=== PATIENT | female | born 1975 | race African-American/Black ===

== ENCOUNTER 2024-05-06 20:15 | Inpatient (IN) | payer OTHER ==
[~2024-05-06] VITALS: Ht 167.6 cm; Wt 62.6 kg
[2024-05-06 21:36] LABS: CALCIUM, SERUM 8.2 mg/dL (8.5-10.1); CARBON DIOXIDE 32 mmol/L (21-32); CHLORIDE 106 mmol/L (98-107); CREATININE 0.8 mg/dL (0.6-1.3); GLUCOSE 133 mg/dL (74-106); POTASSIUM 3.6 mmol/L (3.5-5.1); SODIUM SERUM 144 mmol/L (136-145); UREA NITROGEN, BLOOD 8 mg/dL (7-18)
[2024-05-06 21:43] LABS: BASOPHILS % (AUTO) 0.3 % (0.0-2.0); EOSINOPHILS % (AUTO) 0.1 % (0.0-6.0); LYMPHOCYTES # (AUTO) 1.2 K/uL (0.8-4.8); MEAN CORPUSCULAR HEMOGLOBIN 32 PG (26.0-33.0); MEAN CORPUSCULAR HGB CONC 34 g/dl (31.0-36.0); MEAN CORPUSCULAR VOLUME 95 fL (82-100); MONOCYTES # (AUTO) 0.5 K/uL (0.1-1.30); NEUTROPHILS # (AUTO) 5.8 K/uL (1.8-8.9); NEUTROPHILS % (AUTO) 76.6 % (43.0-81.0); PLATELET COUNT (AUTO) 287 K/uL (150-450); RED BLOOD CELL COUNT(AUTO) 1.88 MIL/uL (4.0-5.2); WHITE BLOOD COUNT (AUTO) 7.6 K/uL (4.3-11.0)
[2024-05-06 21:45] LABS: HEMATOCRIT 18 % (33-45)
[2024-05-06 21:49] LABS: ALANINE AMINOTRANSFERASE 12 U/L (12-78); ALBUMIN 3.3 g/dL (3.4-5.0); ALKALINE PHOSPHATASE 44 U/L (46-116); ASPARTATE AMINOTRANSFERASE 14 U/L (15-37); BILIRUBIN,DIRECT 0.1 mg/dL (0.0-0.2); BILIRUBIN,TOTAL 0.3 mg/dL (0.2-1.0); NT-PRO BNP 28 pg/mL (0-125); THYROID STIMULATING HORMONE 3.12 uIU/mL (0.358-3.74); TOTAL PROTEIN, SERUM 6.5 g/dL (6.4-8.2)
[2024-05-06 22:20] LABS: EOSINOPHILS % (MANUAL) 1 % (0-4); LYMPHOCYTES % (MANUAL) 15 % (16-48); MONOCYTES % (MANUAL) 3 % (0-11.0); NEUTROPHILS % (MANUAL) 81 (42-76)
[2024-05-06 22:21] LABS: ANISOCYTOSIS 1+; HYPOCHROMASIA 1+; OVALOCYTES 1+; PLATELET ESTIMATE ADEQUATE
[2024-05-06 22:35] LABS: PROTHROMBIN TIME 10.6 SECS (9.2-11.1)
[2024-05-07] MEDS ORDERED: FERR324T11 PO (03:40)
[2024-05-07 07:44] LABS: HEMOGLOBIN 8.7 g/dL (11.5-14.8)
[2024-05-07] MEDS ORDERED: CHOL400T PO (10:54)
[2024-05-07] MEDS ORDERED: MAG HYDROX/AL HYDROX/SIMETH 30 ML UDC PO PRN (11:30)
[2024-05-07] MEDS ORDERED: ONDANSETRON HCL/PF 4 MG/2 ML VIAL IVP PRN (11:30)
[2024-05-07] MEDS ORDERED: MAGNESIUM HYDROXIDE 30 ML UDC PO PRN (11:30)
[2024-05-07] MEDS ORDERED: Z GUARD REMEDY 4 OZ OINT TP PRN (11:30)
[2024-05-07] MEDS ORDERED: ACETAMINOPHEN 325 MG TABLET PO PRN (11:30)
[2024-05-07 12:00] VITALS: BP 105/58; TEMP 97.8; O2SAT 100
[2024-05-07 16:00] VITALS: BP 99/72; TEMP 98; O2SAT 98
[2024-05-07 20:00] VITALS: BP 109/64; TEMP 99.5; O2SAT 96
[2024-05-08] VITALS: BP 93/59; TEMP 98.3; O2SAT 93
[2024-05-08 04:00] VITALS: BP 100/65; TEMP 98.2; O2SAT 100
[2024-05-08 06:46] LABS: BASOPHILS % (AUTO) 0.2 % (0.0-2.0); EOSINOPHILS # (AUTO) 0.1 K/uL (0.0-0.7); EOSINOPHILS % (AUTO) 0.8 % (0.0-6.0); HEMATOCRIT 26 % (33-45); HEMOGLOBIN 8.7 g/dL (11.5-14.8); LYMPHOCYTES # (AUTO) 1.8 K/uL (0.8-4.8); LYMPHOCYTES % (AUTO) 25.4 % (20.0-44.0); MEAN CORPUSCULAR HEMOGLOBIN 30 PG (26.0-33.0); MEAN CORPUSCULAR HGB CONC 33 g/dl (31.0-36.0); MEAN CORPUSCULAR VOLUME 91 fL (82-100); MONOCYTES # (AUTO) 0.5 K/uL (0.1-1.30); MONOCYTES % (AUTO) 7.6 % (2.0-12.0); NEUTROPHILS # (AUTO) 4.7 K/uL (1.8-8.9); PLATELET COUNT (AUTO) 287 K/uL (150-450); RED BLOOD CELL COUNT(AUTO) 2.89 MIL/uL (4.0-5.2); RED CELL DISTRIBUTION WIDTH 16.7 % (11.5-15.0); WHITE BLOOD COUNT (AUTO) 7.1 K/uL (4.3-11.0)
[2024-05-08 07:27] LABS: CALCIUM, SERUM 8.6 mg/dL (8.5-10.1); CREATININE 0.8 mg/dL (0.6-1.3); PHOSPHORUS 3.8 mg/dL (2.5-4.9); POTASSIUM 3.7 mmol/L (3.5-5.1)
[2024-05-08 08:00] VITALS: BP 117/76; TEMP 98.6; O2SAT 98
[2024-05-08 12:00] VITALS: BP 117/76; TEMP 98.6; O2SAT 98
== END 2024-05-08 14:49 | disposition home or self-care (01) | DRG 532 ==
LOC: ER 20:26 → TELE1 05-07 08:37 → MEDSG1 05-07 11:32
PROVIDERS: ADMIT Internal Medicine; ATTEND Internal Medicine
PROC: 30233N1 Transfusion of Nonautologous Red Blood Cells into Peripheral Vein, Percutaneous Approach (ICD-10-PCS; principal; 2024-05-07)
DX: N92.4 Excessive bleeding in the premenopausal period (principal); D62 Acute posthemorrhagic anemia; D25.9 Leiomyoma of uterus, unspecified; K64.9 Unspecified hemorrhoids
CPT/HCPCS: 36415; 71045-TC; 76856-TC; 80048-TC; 80076-TC; 83735-TC; 83880; 84100-TC; 84443-TC; 84484-TC; 84702-TC; 85025-TC; 85027-TC; 85730-TC; 86850-TC; G0378; J7040; J7050; P9016